=== PATIENT | male | born 2000 | race Two or more races ===

== ENCOUNTER 2022-08-03 16:09 | Emergency (ER) | payer SELFPAY ==
[~2022-08-03] VITALS: Ht 175.3 cm; Wt 73.2 kg
[2022-08-03 16:11] VITALS: BP 132/75
== END 2022-08-03 17:08 | disposition left against medical advice (07) ==
LOC: M ED 16:09
DX: Z53.21 Procedure and treatment not carried out due to patient leaving prior to being seen by health care provider (principal)

== ENCOUNTER 2022-08-08 06:57 | Emergency (ER) | payer BC, SELFPAY ==
[~2022-08-08] VITALS: Ht 165.1 cm; Wt 69.1 kg
[2022-08-08] MEDS ORDERED: PARO20TA3 PO (07:34)
[2022-08-08 14:51] VITALS: BP 108/53
== END 2022-08-08 15:41 | disposition home or self-care (01) ==
LOC: M ED 06:57
DX: F43.0 Acute stress reaction (principal); F41.9 Anxiety disorder, unspecified; F32.A Depression, unspecified; F40.10 Social phobia, unspecified

== ENCOUNTER 2022-09-23 17:50 | Inpatient (IN) | payer BC ==
[~2022-09-23] VITALS: Ht 177.8 cm; Wt 76.4 kg
[~2022-09-23 17:50] MED LIST: PARO20TA3 PO
[2022-09-23 18:30] LABS: BASO % 0.3 % (0.0-1.0); EOS % 0.3 % (0.0-3.0); HEMATOCRIT 46.8 % (42.0-52.0); HEMOGLOBIN 15.5 g/dl (13.5-17.5); LYMPH # 1.8 10^3/uL (1.5-5.0); LYMPH % 28.6 % (24.0-44.0); MEAN CORPUSCULAR HEMOGLOBIN 29.9 pg (27.0-33.0); MEAN CORPUSCULAR HGB CONC 33.1 g/dl (32.0-36.5); MEAN CORPUSCULAR VOLUME 90.3 fl (80.0-96.0); MONO # 0.4 10^3/uL (0.0-0.8); MONO % 7.1 % (2.0-8.0); NEUTROPHILS # 3.9 10^3/uL (1.5-8.5); NEUTROPHILS % 63.4 % (36.0-66.0); PLATELET COUNT, AUTOMATED 211 10^3/uL (150-450); RED BLOOD COUNT 5.18 10^6/uL (4.30-6.10); WHITE BLOOD COUNT 6.2 10^3/uL (4.0-10.0)
[2022-09-23 19:12] LABS: RSV AMPLIFICATION NEGATIVE (NEGATIVE)
[2022-09-23 19:17] LABS: ACETAMINOPHEN LEVEL < 2.0 UG/ML (10.0-30.0); ALBUMIN 4.1 GM/DL (3.2-5.2); ALKALINE PHOSPHATASE 79 U/L (45-117); ALT/SGPT 17 U/L (12-78); AST/SGOT 8 U/L (7-37); BILIRUBIN,DIRECT 0.3 MG/DL (0.0-0.2); BLOOD UREA NITROGEN 20 MG/DL (7-18); CALCIUM LEVEL 9.1 MG/DL (8.5-10.1); CARBON DIOXIDE LEVEL 29 MEQ/L (21-32); CHLORIDE LEVEL 103 MEQ/L (98-107); CREATININE FOR GFR 1.17 MG/DL (0.70-1.30); ETHYL ALCOHOL (ETHANOL) 0.004 % (0.000-0.010); GLOMERULAR FILTRATION RATE > 60.0 (>60); GLUCOSE, FASTING 110 MG/DL (70-100); POTASSIUM SERUM 3.8 MEQ/L (3.5-5.1); SALICYLATE LEVEL < 1.7 MG/DL (5.0-30.0); SODIUM LEVEL 138 MEQ/L (136-145); TOTAL PROTEIN 7.6 GM/DL (6.4-8.2)
[2022-09-23 20:00] LABS: AMPHETAMINES LEVEL URINE NEGATIVE (NEGATIVE); BARBITURATES URINE NEGATIVE (NEGATIVE); BENZODIAZEPINES URINE NEGATIVE (NEGATIVE); CANNABINOIDS URINE NEGATIVE (NEGATIVE); COCAINE METABOLITE URINE NEGATIVE (NEGATIVE); METHADONE URINE NEGATIVE (NEGATIVE); OPIATES URINE NEGATIVE (NEGATIVE); PHENCYCLIDINE URINE NEGATIVE (NEGATIVE)
[2022-09-23] MEDS ORDERED: RISP0.253 PO (20:23)
[2022-09-23] MEDS ORDERED: PAXI30TA11 PO (20:23)
[2022-09-23] MEDS ORDERED: ARIP1TAB4 PO (21:36)
[2022-09-23] MEDS ORDERED: HOME MED LIST COMPLETE! XX SCH (21:40)
[2022-09-24] MEDS ORDERED: PARoxetine 10MG TABLET PO SCH (09:00)
[2022-09-24] MEDS: NICOTINE 21MG/24HR 1 EA TRANSDERMAL TD SCH (09:00)
[2022-09-24] MEDS ORDERED: MOM 30ML SUSPENSION UDC PO PRN (11:55)
[2022-09-24 14:19] VITALS: BP 139/75
[2022-09-24] MEDS ORDERED: ARIPiprazole 2 MG TAB PO SCH (21:00)
[2022-09-25 06:25] VITALS: BP 128/76
[2022-09-25] MEDS: NICOTINE 21MG/24HR 1 EA TRANSDERMAL TD SCH (09:00)
[2022-09-25] MEDS: VENLAFAXINE **XR** 37.5 MG CAPSULE PO SCH (12:25)
[2022-09-25] MEDS ORDERED: QUEtiapine FUMARATE 50MG TAB PO PRN (13:55)
[2022-09-25 16:12] VITALS: BP 127/79
[2022-09-26] MEDS: zolPIDEM TARTRATE 5 MG TAB PO PRN (00:22)
[2022-09-26 06:24] VITALS: BP 150/70
[2022-09-26] MEDS: NICOTINE 21MG/24HR 1 EA TRANSDERMAL TD SCH (08:19)
[2022-09-26] MEDS: VENLAFAXINE **XR** 37.5 MG CAPSULE PO SCH (08:19)
[2022-09-26 16:36] VITALS: BP 128/70
[2022-09-27 06:18] VITALS: BP 108/64
[2022-09-27] MEDS: VENLAFAXINE **XR** 37.5 MG CAPSULE PO SCH (08:33)
[2022-09-27] MEDS ORDERED: VENLAFAXINE **XR** 37.5 MG CAPSULE PO ONE (08:55)
[2022-09-27 18:34] VITALS: BP 120/83
[2022-09-27] MEDS: zolPIDEM TARTRATE 5 MG TAB PO PRN (21:44)
[2022-09-28 06:12] VITALS: BP 113/56
[2022-09-28] MEDS: VENLAFAXINE **XR** 75MG CAPSULE PO SCH (08:03)
[2022-09-28 16:21] VITALS: BP 133/69
[2022-09-28] MEDS ORDERED: LORazepam 1 MG TAB PO ONE (21:20)
[2022-09-29 06:26] VITALS: BP 117/61
[2022-09-29] MEDS: VENLAFAXINE **XR** 75MG CAPSULE PO SCH (08:38)
[2022-09-29 16:19] VITALS: BP 138/86
[2022-09-30] MEDS: VENLAFAXINE **XR** 75MG CAPSULE PO SCH (08:53)
[2022-09-30 16:18] VITALS: BP 130/64
[2022-09-30] MEDS: zolPIDEM TARTRATE 5 MG TAB PO PRN (20:47)
[2022-09-30 21:35] VITALS: BP 138/77
[2022-10-01 06:40] VITALS: BP 120/65
[2022-10-01] MEDS: VENLAFAXINE **XR** 75MG CAPSULE PO SCH (08:37)
[2022-10-01] MEDS: buPROPion **XL** TABLET 150MG (WELLBUTRIN XL) PO SCH (11:26)
[2022-10-01 18:02] VITALS: BP 126/66
[2022-10-01] MEDS: MAALOX 30 ML SUSP *UDC PO PRN (21:09)
[2022-10-01] MEDS: QUEtiapine FUMARATE 50MG TAB PO SCH (22:32)
[2022-10-02 06:39] VITALS: BP 108/57
[2022-10-02] MEDS: buPROPion **XL** TABLET 150MG (WELLBUTRIN XL) PO SCH (08:27)
[2022-10-02] MEDS: VENLAFAXINE **XR** 75MG CAPSULE PO SCH (08:27)
[2022-10-02 18:04] VITALS: BP 126/68
[2022-10-02] MEDS: QUEtiapine FUMARATE 50MG TAB PO SCH (21:43)
[2022-10-03 06:09] VITALS: BP 136/67
[2022-10-03] MEDS: buPROPion **XL** TABLET 150MG (WELLBUTRIN XL) PO SCH (09:14)
[2022-10-03] MEDS: VENLAFAXINE **XR** 75MG CAPSULE PO SCH (09:14)
[2022-10-03 18:11] VITALS: BP 146/66
[2022-10-03] MEDS: QUEtiapine FUMARATE 25 MG TAB PO SCH (21:53)
[2022-10-04 06:08] VITALS: BP 118/57
[2022-10-04] MEDS: buPROPion **XL** TABLET 150MG (WELLBUTRIN XL) PO SCH (09:27)
[2022-10-04] MEDS: VENLAFAXINE **XR** 75MG CAPSULE PO SCH (09:27)
[2022-10-04 18:16] VITALS: BP 138/76
[2022-10-04] MEDS: QUEtiapine FUMARATE 25 MG TAB PO SCH (21:50)
[2022-10-05 06:16] VITALS: BP 119/58
[2022-10-05] MEDS: buPROPion **XL** TABLET 150MG (WELLBUTRIN XL) PO SCH (08:11)
[2022-10-05] MEDS: VENLAFAXINE **XR** 75MG CAPSULE PO SCH (08:11)
[2022-10-05 18:08] VITALS: BP 125/68
[2022-10-05] MEDS: QUEtiapine FUMARATE 25 MG TAB PO SCH (19:59)
[2022-10-06] MEDS: VENLAFAXINE **XR** 75MG CAPSULE PO SCH (10:02)
[2022-10-06] MEDS: buPROPion **XL** TABLET 150MG (WELLBUTRIN XL) PO SCH (10:02)
[2022-10-06 11:55] VITALS: BP 125/68
[2022-10-06 18:05] VITALS: BP 120/57
[2022-10-06] MEDS: IBUPROFEN 400MG TAB PO PRN (18:05)
[2022-10-06] MEDS: QUEtiapine FUMARATE 25 MG TAB PO SCH (21:13)
[2022-10-07 06:56] VITALS: BP 115/59
[2022-10-07] MEDS: buPROPion **XL** TABLET 150MG (WELLBUTRIN XL) PO SCH (09:54)
[2022-10-07] MEDS: VENLAFAXINE **XR** 75MG CAPSULE PO SCH (09:54)
[2022-10-07 16:29] VITALS: BP 137/63
[2022-10-07] MEDS: IBUPROFEN 400MG TAB PO PRN (18:04)
[2022-10-07] MEDS: QUEtiapine FUMARATE 25 MG TAB PO SCH (21:27)
[2022-10-08 06:23] VITALS: BP 107/69
[2022-10-08] MEDS: buPROPion **XL** TABLET 150MG (WELLBUTRIN XL) PO SCH (09:37)
[2022-10-08] MEDS: VENLAFAXINE **XR** 75MG CAPSULE PO SCH (09:37)
[2022-10-08 16:42] VITALS: BP 137/69
[2022-10-08] MEDS: QUEtiapine FUMARATE 12.5 MG HALF-TAB PO SCH (21:46)
[2022-10-09 06:25] VITALS: BP 126/57
[2022-10-09] MEDS: VENLAFAXINE **XR** 75MG CAPSULE PO SCH (08:39)
[2022-10-09] MEDS: buPROPion **XL** TABLET 150MG (WELLBUTRIN XL) PO SCH (08:39)
[2022-10-09 16:06] VITALS: BP 122/58
[2022-10-09] MEDS: QUEtiapine FUMARATE 12.5 MG HALF-TAB PO SCH (20:38)
[2022-10-10 06:06] VITALS: BP 133/77
[2022-10-10] MEDS: buPROPion **XL** TABLET 150MG (WELLBUTRIN XL) PO SCH (08:30)
[2022-10-10] MEDS: VENLAFAXINE **XR** 75MG CAPSULE PO SCH (08:30)
[2022-10-10] MEDS ORDERED: TUBERCULIN PPD 5 UNITS/0.1 ML ID ONE ×2 (10:00)
[2022-10-10 18:03] VITALS: BP 121/57
[2022-10-10] MEDS: QUEtiapine FUMARATE 12.5 MG HALF-TAB PO SCH (21:28)
[2022-10-11 06:13] VITALS: BP 133/64
[2022-10-11] MEDS: VENLAFAXINE **XR** 37.5 MG CAPSULE PO SCH (08:44)
[2022-10-11] MEDS: buPROPion **XL** TABLET 150MG (WELLBUTRIN XL) PO SCH (08:44)
[2022-10-11] MEDS ORDERED: PPD DOCUMENTATION ENTRY MISC XX SCH (10:00)
[2022-10-11 18:00] VITALS: BP 136/85
[2022-10-11] MEDS: QUEtiapine FUMARATE 12.5 MG HALF-TAB PO SCH (21:54)
[2022-10-12 06:40] VITALS: BP 130/64
[2022-10-12] MEDS: buPROPion **XL** TABLET 150MG (WELLBUTRIN XL) PO SCH (08:31)
[2022-10-12] MEDS: VENLAFAXINE **XR** 37.5 MG CAPSULE PO SCH (08:31)
[2022-10-12] MEDS ORDERED: PPD DOCUMENTATION ENTRY MISC XX ONE (10:00)
[2022-10-12 18:09] VITALS: BP 117/55
[2022-10-12] MEDS: QUEtiapine FUMARATE 12.5 MG HALF-TAB PO SCH (20:03)
[2022-10-12] MEDS: MAALOX 30 ML SUSP *UDC PO PRN (20:03)
[2022-10-13 06:26] VITALS: BP 118/63
[2022-10-13] MEDS: VENLAFAXINE **XR** 37.5 MG CAPSULE PO SCH (09:17)
[2022-10-13] MEDS: buPROPion **XL** TABLET 150MG (WELLBUTRIN XL) PO SCH (09:17)
[2022-10-13 16:19] VITALS: BP 126/56
[2022-10-13] MEDS: QUEtiapine FUMARATE 12.5 MG HALF-TAB PO SCH (21:33)
[2022-10-14 06:20] VITALS: BP 117/60
[2022-10-14] MEDS: VENLAFAXINE **XR** 37.5 MG CAPSULE PO SCH (08:01)
[2022-10-14] MEDS: buPROPion **XL** TABLET 150MG (WELLBUTRIN XL) PO SCH (08:01)
[2022-10-14 16:39] VITALS: BP 119/59
[2022-10-14] MEDS: QUEtiapine FUMARATE 12.5 MG HALF-TAB PO SCH (21:40)
[2022-10-15 05:50] VITALS: BP 108/64
[2022-10-15] MEDS: buPROPion **XL** TABLET 150MG (WELLBUTRIN XL) PO SCH (08:55)
[2022-10-15] MEDS: VENLAFAXINE **XR** 37.5 MG CAPSULE PO SCH (08:55)
[2022-10-15] MEDS ORDERED: EFFE37.5 PO (11:40)
[2022-10-15] MEDS ORDERED: QUET1TAB17 PO (11:40)
[2022-10-15] MEDS ORDERED: EFFE75CA2 PO (11:40)
[2022-10-15] MEDS ORDERED: BUPR150T12 PO (11:40)
[2022-10-15 18:06] VITALS: BP 117/60
[2022-10-15] MEDS: QUEtiapine FUMARATE 12.5 MG HALF-TAB PO SCH (21:13)
[2022-10-16 06:09] VITALS: BP 119/73
[2022-10-16] MEDS: VENLAFAXINE **XR** 37.5 MG CAPSULE PO SCH (09:24)
[2022-10-16] MEDS: LURASIDONE 20 MG TAB (LATUDA) PO SCH (09:24)
[2022-10-16] MEDS: buPROPion **XL** TABLET 150MG (WELLBUTRIN XL) PO SCH (09:24)
[2022-10-16] MEDS ORDERED: LORazepam 2 MG TAB PO ONE (15:25)
[2022-10-16 18:39] VITALS: BP 122/66
[2022-10-16] MEDS: QUEtiapine FUMARATE 12.5 MG HALF-TAB PO SCH (21:12)
[2022-10-17 06:15] VITALS: BP 111/59
[2022-10-17] MEDS: VENLAFAXINE **XR** 37.5 MG CAPSULE PO SCH (08:13)
[2022-10-17] MEDS: LURASIDONE 20 MG TAB (LATUDA) PO SCH (08:13)
[2022-10-17] MEDS: buPROPion **XL** TABLET 150MG (WELLBUTRIN XL) PO SCH (08:13)
[2022-10-17] MEDS: QUEtiapine FUMARATE 12.5 MG HALF-TAB PO SCH (21:19)
[2022-10-18 06:27] VITALS: BP 133/73
[2022-10-18] MEDS: VENLAFAXINE **XR** 37.5 MG CAPSULE PO SCH (07:56)
[2022-10-18] MEDS: LURASIDONE 20 MG TAB (LATUDA) PO SCH (07:56)
[2022-10-18] MEDS: buPROPion **XL** TABLET 150MG (WELLBUTRIN XL) PO SCH (07:56)
[2022-10-18 18:09] VITALS: BP 126/70
[2022-10-18] MEDS: QUEtiapine FUMARATE 12.5 MG HALF-TAB PO SCH (22:08)
[2022-10-19 06:16] VITALS: BP 120/59
[2022-10-19] MEDS: buPROPion **XL** TABLET 150MG (WELLBUTRIN XL) PO SCH (08:27)
[2022-10-19] MEDS: VENLAFAXINE **XR** 37.5 MG CAPSULE PO SCH (08:27)
[2022-10-19] MEDS: LURASIDONE 20 MG TAB (LATUDA) PO SCH (08:27)
[2022-10-19 18:03] VITALS: BP 134/69
[2022-10-19] MEDS: QUEtiapine FUMARATE 12.5 MG HALF-TAB PO SCH (22:08)
[2022-10-20] MEDS: LURASIDONE 20 MG TAB (LATUDA) PO SCH (09:24)
[2022-10-20] MEDS: VENLAFAXINE **XR** 37.5 MG CAPSULE PO SCH (09:24)
[2022-10-20] MEDS: buPROPion **XL** TABLET 150MG (WELLBUTRIN XL) PO SCH (09:24)
[2022-10-20 18:04] VITALS: BP 119/60
[2022-10-20] MEDS: QUEtiapine FUMARATE 12.5 MG HALF-TAB PO SCH (21:41)
[2022-10-21 06:09] VITALS: BP 117/56
[2022-10-21] MEDS: LURASIDONE 20 MG TAB (LATUDA) PO SCH (07:45)
[2022-10-21] MEDS: VENLAFAXINE **XR** 37.5 MG CAPSULE PO SCH (07:46)
[2022-10-21] MEDS: buPROPion **XL** TABLET 150MG (WELLBUTRIN XL) PO SCH (07:46)
[2022-10-21 18:00] VITALS: BP 123/78
[2022-10-21] MEDS: QUEtiapine FUMARATE 12.5 MG HALF-TAB PO SCH (22:03)
[2022-10-22 06:23] VITALS: BP 140/71
[2022-10-22] MEDS: VENLAFAXINE **XR** 37.5 MG CAPSULE PO SCH (08:28)
[2022-10-22] MEDS: LURASIDONE 20 MG TAB (LATUDA) PO SCH (08:28)
[2022-10-22] MEDS: buPROPion **XL** TABLET 150MG (WELLBUTRIN XL) PO SCH (08:28)
[2022-10-22] MEDS ORDERED: LATU20TA PO (08:44)
== END 2022-10-22 11:45 | disposition home or self-care (01) | DRG 751 ==
LOC: M ED 17:50 → M ED INP 09-24 11:54 → M PSY 09-24 14:13
PROVIDERS: ADMIT Student in an Organized Health Care Education/Training Program; ATTEND Student in an Organized Health Care Education/Training Program
DX: F33.1 Major depressive disorder, recurrent, moderate (principal); F40.10 Social phobia, unspecified; F60.89 Other specific personality disorders; Z20.822 Contact with and (suspected) exposure to COVID-19; Z79.899 Other long term (current) drug therapy; Z63.8 Other specified problems related to primary support group; T14.91XA Suicide attempt, initial encounter; T43.502A Poisoning by unspecified antipsychotics and neuroleptics, intentional self-harm, initial encounter; T43.222A Poisoning by selective serotonin reuptake inhibitors, intentional self-harm, initial encounter

== ENCOUNTER 2022-10-29 10:49 | Inpatient (IN) | payer BC, MEDICAID ==
[~2022-10-29] VITALS: Ht 177.8 cm; Wt 74.7 kg
[~2022-10-29 10:49] MED LIST changes: +ARIP1TAB4 PO; +BUPR150T12 PO; +EFFE37.5 PO; +EFFE75CA2 PO; +LATU20TA PO; +PAXI30TA12 PO; +QUET1TAB17 PO; +RISP0.253 PO
[2022-10-29 12:06] LABS: HEMATOCRIT 48.5 % (42.0-52.0); HEMOGLOBIN 16.2 g/dl (13.5-17.5); MEAN CORPUSCULAR HEMOGLOBIN 30.1 pg (27.0-33.0); MEAN CORPUSCULAR HGB CONC 33.4 g/dl (32.0-36.5); MEAN CORPUSCULAR VOLUME 90.1 fl (80.0-96.0); PLATELET COUNT, AUTOMATED 230 10^3/uL (150-450); RED BLOOD COUNT 5.38 10^6/uL (4.30-6.10); WHITE BLOOD COUNT 7.3 10^3/uL (4.0-10.0)
[2022-10-29 12:32] LABS: ETHYL ALCOHOL (ETHANOL) 0.003 % (0.000-0.010)
[2022-10-29 12:33] LABS: ACETAMINOPHEN LEVEL < 2.0 UG/ML (10.0-20.0); BILIRUBIN,DIRECT 0.3 MG/DL (<0.4); SALICYLATE LEVEL < 3.0 MG/DL (<30)
[2022-10-29 12:34] LABS: ALBUMIN 4.1 G/DL (3.2-5.2); ALKALINE PHOSPHATASE 75 U/L (46-116); ALT/SGPT < 9 U/L (7.0-40); AST/SGOT 8 U/L (<34); BILIRUBIN,TOTAL 0.8 MG/DL (0.3-1.2); BLOOD UREA NITROGEN 16 MG/DL (9-23); CALCIUM LEVEL 9.6 MG/DL (8.5-10.1); CARBON DIOXIDE LEVEL 31 MMOL/L (20-31); CHLORIDE LEVEL 102 MMOL/L (98-107); CREATININE FOR GFR 1.11 MG/DL (0.70-1.30); GLOMERULAR FILTRATION RATE > 60.0 (>60); GLUCOSE, FASTING 106 MG/DL (60-100); POTASSIUM SERUM 4.4 MMOL/L (3.5-5.1); SODIUM LEVEL 139 MMOL/L (136-145); TOTAL PROTEIN 7.4 G/DL (5.7-8.2)
[2022-10-29 12:36] LABS: THYROID STIMULATING HORMONE 2.124 uIU/ML (0.55-4.78)
[2022-10-29 12:38] LABS: RSV AMPLIFICATION NEGATIVE (NEGATIVE)
[2022-10-29 15:29] LABS: AMPHETAMINES LEVEL URINE NEGATIVE (NEGATIVE)
[2022-10-29 15:30] LABS: BARBITURATES URINE NEGATIVE (NEGATIVE); BENZODIAZEPINES URINE NEGATIVE (NEGATIVE); COCAINE METABOLITE URINE NEGATIVE (NEGATIVE); METHADONE URINE NEGATIVE (NEGATIVE); OPIATES URINE NEGATIVE (NEGATIVE); PHENCYCLIDINE URINE NEGATIVE (NEGATIVE)
[2022-10-29 15:31] LABS: CANNABINOIDS URINE NEGATIVE (NEGATIVE)
[2022-10-29] MEDS ORDERED: VENL37.598 PO (15:40)
[2022-10-29] MEDS ORDERED: SERO1TAB3 PO (15:40)
[2022-10-29] MEDS ORDERED: HOME MED LIST COMPLETE! XX SCH (15:40)
[2022-10-29] MEDS ORDERED: BUPR-365 PO (15:40)
[2022-10-29] MEDS ORDERED: LATU20TA PO (15:40)
[2022-10-29] MEDS ORDERED: VENL75CA47 PO (15:40)
[2022-10-29] MEDS ORDERED: MOM 30ML SUSPENSION UDC PO PRN (22:10)
[2022-10-29] MEDS ORDERED: ACETAMINOPHEN TAB 650MG DOSE (2X325MG) PO PRN (22:10)
[2022-10-29] MEDS ORDERED: MAALOX 30 ML SUSP *UDC PO PRN (22:10)
[2022-10-29 22:32] VITALS: BP 139/77
[2022-10-29] MEDS: QUEtiapine FUMARATE 12.5 MG HALF-TAB PO SCH (23:22)
[2022-10-30 06:37] VITALS: BP 133/61
[2022-10-30] MEDS: buPROPion **XL** TABLET 150MG (WELLBUTRIN XL) PO SCH (08:21)
[2022-10-30] MEDS: LURASIDONE 20 MG TAB (LATUDA) PO SCH (08:21)
[2022-10-30] MEDS ORDERED: VENLAFAXINE **XR** 37.5 MG CAPSULE PO SCH (09:00)
[2022-10-30] MEDS ORDERED: VENLAFAXINE **XR** 75MG CAPSULE PO SCH (09:00)
[2022-10-30] MEDS ORDERED: VENLAFAXINE **XR** 37.5 MG CAPSULE PO ONE (09:10)
[2022-10-30] MEDS: QUEtiapine FUMARATE 12.5 MG HALF-TAB PO SCH (21:15)
[2022-10-31 06:42] VITALS: BP 113/68
[2022-10-31] MEDS: LURASIDONE 20 MG TAB (LATUDA) PO SCH (08:24)
[2022-10-31] MEDS: buPROPion **XL** TABLET 150MG (WELLBUTRIN XL) PO SCH (08:24)
[2022-10-31] MEDS: VENLAFAXINE **XR** 75MG CAPSULE PO SCH (08:25)
[2022-10-31 18:03] VITALS: BP 119/58
[2022-10-31] MEDS: QUEtiapine FUMARATE 12.5 MG HALF-TAB PO SCH (21:51)
[2022-11-01 06:28] VITALS: BP 113/61
[2022-11-01] MEDS: LURASIDONE 20 MG TAB (LATUDA) PO SCH (08:29)
[2022-11-01] MEDS: VENLAFAXINE **XR** 75MG CAPSULE PO SCH (08:29)
[2022-11-01] MEDS: buPROPion **XL** TABLET 150MG (WELLBUTRIN XL) PO SCH (08:29)
[2022-11-01 15:04] VITALS: BP 130/60
[2022-11-01] MEDS: QUEtiapine FUMARATE 12.5 MG HALF-TAB PO SCH (21:11)
[2022-11-01] MEDS: RAMELTEON 8 MG TAB (ROZEREM) PO SCH (21:11)
[2022-11-02] MEDS: traZODone 50 MG TAB PO PRN (01:34)
[2022-11-02] MEDS: VENLAFAXINE **XR** 75MG CAPSULE PO SCH (09:31)
[2022-11-02] MEDS: LURASIDONE 20 MG TAB (LATUDA) PO SCH (09:31)
[2022-11-02] MEDS: buPROPion **XL** TABLET 150MG (WELLBUTRIN XL) PO SCH (09:31)
[2022-11-02 17:23] VITALS: BP 129/72
[2022-11-02 19:49] VITALS: BP 129/72
[2022-11-02 20:03] LABS: BASO % 0.3 % (0.0-1.0); EOS % 0.5 % (0.0-3.0); HEMATOCRIT 48.5 % (42.0-52.0); HEMOGLOBIN 16.2 g/dl (13.5-17.5); LYMPH # 1.9 10^3/uL (1.5-5.0); LYMPH % 28.5 % (24.0-44.0); MEAN CORPUSCULAR HEMOGLOBIN 29.8 pg (27.0-33.0); MEAN CORPUSCULAR HGB CONC 33.4 g/dl (32.0-36.5); MEAN CORPUSCULAR VOLUME 89.2 fl (80.0-96.0); MONO # 0.5 10^3/uL (0.0-0.8); MONO % 7.7 % (2.0-8.0); NEUTROPHILS # 4.1 10^3/uL (1.5-8.5); NEUTROPHILS % 62.7 % (36.0-66.0); PLATELET COUNT, AUTOMATED 217 10^3/uL (150-450); RED BLOOD COUNT 5.44 10^6/uL (4.30-6.10); WHITE BLOOD COUNT 6.5 10^3/uL (4.0-10.0)
[2022-11-02 20:34] LABS: ALKALINE PHOSPHATASE 77 U/L (46-116); ALT/SGPT 9 U/L (7.0-40); AST/SGOT 17 U/L (<34); BLOOD UREA NITROGEN 17 MG/DL (9-23); CALCIUM LEVEL 9.4 MG/DL (8.5-10.1); CARBON DIOXIDE LEVEL 27 MMOL/L (20-31); CHLORIDE LEVEL 103 MMOL/L (98-107); CREATININE FOR GFR 1.17 MG/DL (0.70-1.30); GLOMERULAR FILTRATION RATE > 60.0 (>60); GLUCOSE, FASTING 92 MG/DL (60-100); POTASSIUM SERUM 4.6 MMOL/L (3.5-5.1); SODIUM LEVEL 140 MMOL/L (136-145); TOTAL PROTEIN 7.3 G/DL (5.7-8.2)
[2022-11-02] MEDS: RAMELTEON 8 MG TAB (ROZEREM) PO SCH (21:12)
[2022-11-02] MEDS: QUEtiapine FUMARATE 12.5 MG HALF-TAB PO SCH (21:12)
[2022-11-03 06:32] VITALS: BP 116/66
[2022-11-03] MEDS: LURASIDONE 20 MG TAB (LATUDA) PO SCH (09:32)
[2022-11-03] MEDS: buPROPion **XL** TABLET 150MG (WELLBUTRIN XL) PO SCH (09:32)
[2022-11-03] MEDS: VENLAFAXINE **XR** 75MG CAPSULE PO SCH (09:32)
[2022-11-03 18:19] VITALS: BP 119/72
[2022-11-03] MEDS: traZODone 50 MG TAB PO PRN (20:15)
[2022-11-03] MEDS: RAMELTEON 8 MG TAB (ROZEREM) PO SCH (20:21)
[2022-11-03] MEDS: ACETAMINOPHEN TAB 650MG DOSE (2X325MG) PO PRN (20:21)
[2022-11-03] MEDS: QUEtiapine FUMARATE 12.5 MG HALF-TAB PO SCH (20:21)
[2022-11-04 06:35] VITALS: BP 105/58
[2022-11-04] MEDS: VENLAFAXINE **XR** 75MG CAPSULE PO SCH (08:03)
[2022-11-04] MEDS: buPROPion **XL** TABLET 150MG (WELLBUTRIN XL) PO SCH (08:03)
[2022-11-04] MEDS: LURASIDONE 20 MG TAB (LATUDA) PO SCH (08:03)
[2022-11-04 18:02] VITALS: BP 107/64
[2022-11-04] MEDS: RAMELTEON 8 MG TAB (ROZEREM) PO SCH (22:21)
[2022-11-04] MEDS: QUEtiapine FUMARATE 12.5 MG HALF-TAB PO SCH (22:21)
[2022-11-05 06:41] VITALS: BP 129/63
[2022-11-05] MEDS: buPROPion **XL** TABLET 150MG (WELLBUTRIN XL) PO SCH (09:09)
[2022-11-05] MEDS: LURASIDONE 20 MG TAB (LATUDA) PO SCH (09:09)
[2022-11-05] MEDS: VENLAFAXINE **XR** 75MG CAPSULE PO SCH (09:09)
[2022-11-05 16:22] VITALS: BP 113/71
[2022-11-05] MEDS: RAMELTEON 8 MG TAB (ROZEREM) PO SCH (21:48)
[2022-11-05] MEDS: QUEtiapine FUMARATE 12.5 MG HALF-TAB PO SCH (21:48)
[2022-11-06 06:31] VITALS: BP 129/72
[2022-11-06] MEDS: LURASIDONE 20 MG TAB (LATUDA) PO SCH (09:00)
[2022-11-06] MEDS: buPROPion **XL** TABLET 150MG (WELLBUTRIN XL) PO SCH (09:04)
[2022-11-06] MEDS: VENLAFAXINE **XR** 75MG CAPSULE PO SCH (09:04)
[2022-11-06 16:49] VITALS: BP 131/65
[2022-11-06] MEDS: QUEtiapine FUMARATE 12.5 MG HALF-TAB PO SCH (20:20)
[2022-11-06] MEDS: RAMELTEON 8 MG TAB (ROZEREM) PO SCH (20:20)
[2022-11-07 06:46] VITALS: BP 117/60
[2022-11-07] MEDS: LURASIDONE 20 MG TAB (LATUDA) PO SCH (07:58)
[2022-11-07] MEDS: VENLAFAXINE **XR** 75MG CAPSULE PO SCH (07:58)
[2022-11-07] MEDS: buPROPion **XL** TABLET 150MG (WELLBUTRIN XL) PO SCH (07:58)
[2022-11-07 16:33] VITALS: BP 118/58
[2022-11-07] MEDS: RAMELTEON 8 MG TAB (ROZEREM) PO SCH (20:01)
[2022-11-07] MEDS: QUEtiapine FUMARATE 12.5 MG HALF-TAB PO SCH (20:02)
[2022-11-08 07:02] VITALS: BP 116/72
[2022-11-08] MEDS: LURASIDONE 20 MG TAB (LATUDA) PO SCH (08:40)
[2022-11-08] MEDS: buPROPion **XL** TABLET 150MG (WELLBUTRIN XL) PO SCH (08:40)
[2022-11-08] MEDS: VENLAFAXINE **XR** 75MG CAPSULE PO SCH (08:40)
[2022-11-08 18:39] VITALS: BP 132/74
[2022-11-08] MEDS: QUEtiapine FUMARATE 12.5 MG HALF-TAB PO SCH (21:12)
[2022-11-08] MEDS: RAMELTEON 8 MG TAB (ROZEREM) PO SCH (21:12)
[2022-11-09 06:10] VITALS: BP 112/62
[2022-11-09] MEDS: buPROPion **XL** TABLET 150MG (WELLBUTRIN XL) PO SCH (08:08)
[2022-11-09] MEDS: VENLAFAXINE **XR** 75MG CAPSULE PO SCH (08:08)
[2022-11-09] MEDS: LURASIDONE 20 MG TAB (LATUDA) PO SCH (08:08)
[2022-11-09] MEDS ORDERED: **PENDING PPD ENTRY XX SCH (09:00)
[2022-11-09] MEDS: ACETAMINOPHEN TAB 650MG DOSE (2X325MG) PO PRN ×2 (11:41→22:09)
[2022-11-09] MEDS ORDERED: TUBERCULIN PPD 5 UNITS/0.1 ML ID ONE (13:00)
[2022-11-09 18:00] VITALS: BP 140/80
[2022-11-09] MEDS: RAMELTEON 8 MG TAB (ROZEREM) PO SCH (22:07)
[2022-11-09] MEDS: QUEtiapine FUMARATE 12.5 MG HALF-TAB PO SCH (22:07)
[2022-11-10 06:33] VITALS: BP 103/54
[2022-11-10] MEDS ORDERED: TUBERCULIN PPD 5 UNITS/0.1 ML ID ONE (10:00)
[2022-11-10] MEDS: VENLAFAXINE **XR** 75MG CAPSULE PO SCH (10:05)
[2022-11-10] MEDS: buPROPion **XL** TABLET 150MG (WELLBUTRIN XL) PO SCH (10:06)
[2022-11-10] MEDS: LURASIDONE 20 MG TAB (LATUDA) PO SCH (10:06)
[2022-11-10 17:03] VITALS: BP 123/59
[2022-11-11] MEDS: traZODone 50 MG TAB PO PRN (01:28)
[2022-11-11] MEDS: ACETAMINOPHEN TAB 650MG DOSE (2X325MG) PO PRN (06:22)
[2022-11-11 06:29] VITALS: BP 116/63
[2022-11-11] MEDS: LURASIDONE 20 MG TAB (LATUDA) PO SCH (08:52)
[2022-11-11] MEDS: buPROPion **XL** TABLET 150MG (WELLBUTRIN XL) PO SCH (08:52)
[2022-11-11] MEDS: VENLAFAXINE **XR** 75MG CAPSULE PO SCH (08:52)
[2022-11-11] MEDS ORDERED: PPD DOCUMENTATION ENTRY MISC XX SCH (10:00)
[2022-11-11] MEDS ORDERED: PPD DOCUMENTATION ENTRY MISC XX ONE (13:00)
[2022-11-11 14:54] VITALS: BP 115/68
[2022-11-11] MEDS: RAMELTEON 8 MG TAB (ROZEREM) PO SCH ×2 (21:25)
[2022-11-11] MEDS: QUEtiapine FUMARATE 12.5 MG HALF-TAB PO SCH ×2 (21:25)
[2022-11-12 07:08] VITALS: BP 123/57
[2022-11-12] MEDS: VENLAFAXINE **XR** 75MG CAPSULE PO SCH (09:35)
[2022-11-12] MEDS: buPROPion **XL** TABLET 150MG (WELLBUTRIN XL) PO SCH (09:35)
[2022-11-12] MEDS: LURASIDONE 20 MG TAB (LATUDA) PO SCH (09:35)
[2022-11-12 19:00] VITALS: BP 146/87
[2022-11-12] MEDS: RAMELTEON 8 MG TAB (ROZEREM) PO SCH (21:39)
[2022-11-12] MEDS: QUEtiapine FUMARATE 12.5 MG HALF-TAB PO SCH (21:39)
[2022-11-13 06:54] VITALS: BP 120/61
[2022-11-13] MEDS: LURASIDONE 20 MG TAB (LATUDA) PO SCH (08:35)
[2022-11-13] MEDS: buPROPion **XL** TABLET 150MG (WELLBUTRIN XL) PO SCH (08:35)
[2022-11-13] MEDS: VENLAFAXINE **XR** 75MG CAPSULE PO SCH (08:35)
[2022-11-13 17:53] VITALS: BP 146/70
[2022-11-13] MEDS: QUEtiapine FUMARATE 12.5 MG HALF-TAB PO SCH (21:07)
[2022-11-13] MEDS: RAMELTEON 8 MG TAB (ROZEREM) PO SCH (21:08)
[2022-11-14 07:23] VITALS: BP 113/58
[2022-11-14] MEDS: VENLAFAXINE **XR** 75MG CAPSULE PO SCH (08:58)
[2022-11-14] MEDS: buPROPion **XL** TABLET 150MG (WELLBUTRIN XL) PO SCH (08:59)
[2022-11-14] MEDS: LURASIDONE 20 MG TAB (LATUDA) PO SCH (08:59)
[2022-11-14 18:18] VITALS: BP 124/64
[2022-11-14] MEDS: QUEtiapine FUMARATE 12.5 MG HALF-TAB PO SCH (22:32)
[2022-11-14] MEDS: RAMELTEON 8 MG TAB (ROZEREM) PO SCH (22:32)
[2022-11-14] MEDS: LITHIUM CARBONATE 150 MG CAP PO SCH (22:32)
[2022-11-15 06:42] VITALS: BP 123/62
[2022-11-15] MEDS: buPROPion **XL** TABLET 150MG (WELLBUTRIN XL) PO SCH (09:15)
[2022-11-15] MEDS: LURASIDONE 20 MG TAB (LATUDA) PO SCH (09:15)
[2022-11-15] MEDS: VENLAFAXINE **XR** 75MG CAPSULE PO SCH (09:15)
[2022-11-15 18:10] VITALS: BP 133/66
[2022-11-15] MEDS: RAMELTEON 8 MG TAB (ROZEREM) PO SCH (21:55)
[2022-11-15] MEDS: LITHIUM CARBONATE 150 MG CAP PO SCH (21:55)
[2022-11-16 06:38] VITALS: BP 149/65
[2022-11-16] MEDS: buPROPion **XL** TABLET 150MG (WELLBUTRIN XL) PO SCH (09:06)
[2022-11-16] MEDS: VENLAFAXINE **XR** 75MG CAPSULE PO SCH (09:07)
[2022-11-16] MEDS: LURASIDONE 20 MG TAB (LATUDA) PO SCH (09:07)
[2022-11-16 18:14] VITALS: BP 118/56
[2022-11-16] MEDS: LITHIUM CARBONATE 150 MG CAP PO SCH (20:39)
[2022-11-16] MEDS: RAMELTEON 8 MG TAB (ROZEREM) PO SCH (20:40)
[2022-11-17 06:36] VITALS: BP 114/59
[2022-11-17] MEDS: VENLAFAXINE **XR** 75MG CAPSULE PO SCH (08:22)
[2022-11-17] MEDS: buPROPion **XL** TABLET 150MG (WELLBUTRIN XL) PO SCH (08:22)
[2022-11-17] MEDS: LURASIDONE 20 MG TAB (LATUDA) PO SCH (08:22)
[2022-11-17 18:00] VITALS: BP 125/58
[2022-11-17] MEDS: RAMELTEON 8 MG TAB (ROZEREM) PO SCH (21:57)
[2022-11-17] MEDS: LITHIUM CARBONATE 150 MG CAP PO SCH (21:57)
[2022-11-18 06:56] VITALS: BP 117/73
[2022-11-18] MEDS: buPROPion **XL** TABLET 150MG (WELLBUTRIN XL) PO SCH (08:12)
[2022-11-18] MEDS: VENLAFAXINE **XR** 75MG CAPSULE PO SCH (08:12)
[2022-11-18] MEDS: LURASIDONE 20 MG TAB (LATUDA) PO SCH (08:13)
[2022-11-18 18:00] VITALS: BP 122/83
[2022-11-18] MEDS: RAMELTEON 8 MG TAB (ROZEREM) PO SCH (21:35)
[2022-11-18] MEDS: LITHIUM CARBONATE 150 MG CAP PO SCH (21:35)
[2022-11-19 06:12] VITALS: BP 123/69
[2022-11-19] MEDS: LURASIDONE 20 MG TAB (LATUDA) PO SCH (08:34)
[2022-11-19] MEDS: buPROPion **XL** TABLET 150MG (WELLBUTRIN XL) PO SCH (08:34)
[2022-11-19] MEDS: VENLAFAXINE **XR** 75MG CAPSULE PO SCH (08:34)
[2022-11-19 16:19] VITALS: BP 127/64
[2022-11-19] MEDS: RAMELTEON 8 MG TAB (ROZEREM) PO SCH (21:00)
[2022-11-19] MEDS: LITHIUM CARBONATE 150 MG CAP PO SCH (21:00)
[2022-11-20 06:37] VITALS: BP 137/87
[2022-11-20] MEDS: buPROPion **XL** TABLET 150MG (WELLBUTRIN XL) PO SCH (08:06)
[2022-11-20] MEDS: VENLAFAXINE **XR** 75MG CAPSULE PO SCH (08:06)
[2022-11-20] MEDS: LURASIDONE 20 MG TAB (LATUDA) PO SCH (08:06)
[2022-11-20 16:23] VITALS: BP 137/60
[2022-11-20] MEDS: LITHIUM CARBONATE 150 MG CAP PO SCH (20:29)
[2022-11-20] MEDS: RAMELTEON 8 MG TAB (ROZEREM) PO SCH (20:29)
[2022-11-21 06:35] VITALS: BP 131/77
[2022-11-21] MEDS: VENLAFAXINE **XR** 75MG CAPSULE PO SCH (07:47)
[2022-11-21] MEDS: LURASIDONE 20 MG TAB (LATUDA) PO SCH (07:47)
[2022-11-21] MEDS: buPROPion **XL** TABLET 150MG (WELLBUTRIN XL) PO SCH (07:47)
[2022-11-21] MEDS ORDERED: TRAZ-252 PO (08:18)
[2022-11-21] MEDS ORDERED: RAME8TAB2 PO (08:18)
[2022-11-21] MEDS ORDERED: BUPR150T12 PO (08:18)
[2022-11-21] MEDS ORDERED: VENL75CA47 PO (08:18)
[2022-11-21] MEDS ORDERED: LITH150C PO (08:18)
[2022-11-21 16:23] VITALS: BP 133/77
[2022-11-21] MEDS: RAMELTEON 8 MG TAB (ROZEREM) PO SCH (21:30)
[2022-11-21] MEDS: LITHIUM CARBONATE 150 MG CAP PO SCH (21:30)
[2022-11-22 06:37] VITALS: BP 129/75
[2022-11-22] MEDS: LURASIDONE 20 MG TAB (LATUDA) PO SCH (07:54)
[2022-11-22] MEDS: VENLAFAXINE **XR** 75MG CAPSULE PO SCH (07:54)
[2022-11-22] MEDS: buPROPion **XL** TABLET 150MG (WELLBUTRIN XL) PO SCH (07:54)
== END 2022-11-22 14:46 | DRG 751 ==
LOC: M ED 10:49 → M ED INP 22:07 → M PSY 22:07
PROVIDERS: ADMIT Student in an Organized Health Care Education/Training Program; ATTEND Student in an Organized Health Care Education/Training Program
DX: F33.1 Major depressive disorder, recurrent, moderate (principal); F60.89 Other specific personality disorders; R45.851 Suicidal ideations; F84.9 Pervasive developmental disorder, unspecified; Z20.822 Contact with and (suspected) exposure to COVID-19; Z79.899 Other long term (current) drug therapy; R50.9 Fever, unspecified

== ENCOUNTER 2024-11-18 16:41 | Emergency (ER) | payer MEDICAID, OTHER ==
[~2024-11-18] VITALS: Ht 177.8 cm; Wt 73.6 kg
[~2024-11-18 16:41] MED LIST changes: +BUPR-365 PO; -EFFE37.5 PO; +EFFE37.52 PO; +LITH150C PO; +RAME8TAB2 PO; +SERO1TAB3 PO; +TRAZ-252 PO; +VENL37.598 PO; +VENL75CA47 PO
[2024-11-18 16:45] VITALS: BP 160/81; TEMP 98.1; O2SAT 95
[2024-11-18] MEDS ORDERED: BRIN10TA4 PO (16:53)
[2024-11-18] MEDS ORDERED: HYDR-643 PO (16:53)
[2024-11-18] MEDS: LORazepam 1 MG TAB PO ONE (18:44)
== END 2024-11-18 19:40 | disposition home or self-care (01) ==
LOC: M ED 16:41
DX: F41.9 Anxiety disorder, unspecified (principal); F32.A Depression, unspecified; Z79.899 Other long term (current) drug therapy

== ENCOUNTER → 2025-04-01 | Outpatient (REF) | payer OTHER ==
[~2025-04-01] MED LIST changes: +BRIN10TA4 PO; +HYDR-643 PO
[2025-04-01 14:46] LABS: ALBUMIN 4.4 G/DL (3.2-5.2); ALKALINE PHOSPHATASE 75 U/L (40-129); ALT/SGPT 19 U/L (7.0-40); AST/SGOT 16 U/L (<34); BILIRUBIN,TOTAL 1.1 MG/DL (0.3-1.2); BLOOD UREA NITROGEN 24 MG/DL (9-23); CALCIUM LEVEL 9.3 MG/DL (8.5-10.1); CARBON DIOXIDE LEVEL 31 MMOL/L (20-31); CHLORIDE LEVEL 105 MMOL/L (98-107); GLOMERULAR FILTRATION RATE > 90.0 (>60); GLUCOSE, FASTING 94 MG/DL (60-100); POTASSIUM SERUM 4.5 MMOL/L (3.5-5.1); SODIUM LEVEL 143 MMOL/L (136-145); TOTAL PROTEIN 7.6 G/DL (5.7-8.2)
[2025-04-01 14:49] LABS: TOTAL 25(OH) VITAMIN D 47.8 NG/ML (20.0-100.0)
[2025-04-01 14:51] LABS: THYROID STIMULATING HORMONE 2.051 uIU/ML (0.55-4.78)
== END ==
LOC: M LAB REF 13:37
PROVIDERS: ATTEND Student in an Organized Health Care Education/Training Program
DX: F41.9 Anxiety disorder, unspecified (principal); F32.A Depression, unspecified; Z68.23 Body mass index [BMI] 23.0-23.9, adult